=== PATIENT | male | born 1955 | race Caucasian/White ===

== ENCOUNTER → 2017-07-13 | Day surgery (SDC) | payer OTHER ==
[2017-07-11 11:40] LABS: ANION GAP 13.2 mmol/L (8-16); BLOOD UREA NITROGEN 8 mg/dL (7-26); BUN/CREATININE RATIO 8 (6-25); CALCIUM 10.1 mg/dL (8.4-10.2); CARBON DIOXIDE 32 mmol/L (22-29); CHLORIDE 103 mmol/L (98-107); CREATININE, SERUM 1.06 mg/dL (0.72-1.25); EST GLOMERULAR FILTRATION RATE > 60 ML/MIN (60-); GLUCOSE 122 mg/dL (74-118); POTASSIUM 5.2 mmol/L (3.5-5.1); SODIUM 143 mmol/L (136-145)
[~2017-07-13] MED LIST: ASPIRIN81 MG PO; BELLADONNA/OPIUM 60 MG SUPP PR ONE; CALCIUM 500+D1 EACH PO; CEFTRIAXONE SOD 1 GM/NS 50 ML 50 ML IV ONE; EPHEDRINE SULFATE INJ 50 MG/10 ML SYR ONE; FENTANYL CITRATE/PF 100MCG/2 ML INJ ONE; FINASTERIDE5 MG PO; GENTAMICIN SULFATE 160 MG in SODIUM CHLORIDE 0.9% 100 ML IV ONE; IOPAMIDOL 610MG/1ML 300 MG/ML VIAL IV ONE; LIDOCAINE HCL 2% LOCAL INJ 5 ML SDV VIAL INJ ONE; MIDAZOLAM HCL 2 MG/2 ML VIAL ONE; MULTIVITAMINS1 EAC7 PO; ONDANSETRON HCL INJ 2 MG/ML VIAL ONE; PROPOFOL IV EMULSION 10 MG/ML 20 ML VIAL ONE; SEVOFLURANE INHAL SOLN 250 ML PEN BTL ONE; TAMSULOSIN HCL0.4 MG PO
--- NOTE | 2017-08-25 03:30 | Operative Report ---
DATE OF PROCEDURE: July 13, 2017 PREOPERATIVE DIAGNOSES 1. Obstructive BPH. 2. Incomplete bladder emptying. POSTOPERATIVE DIAGNOSES 1. Obstructive BPH. 2. Incomplete bladder emptying. PROCEDURE PERFORMED 1. Cystourethroscopy with bilateral ureteral catheterization and retrograde ureteropyelography (separate procedure performed to evaluate the upper tracts in light of the incomplete bladder emptying). 2. Cystourethroscopy with implantation of 4 UroLift implants (separate procedure performed for the obstructive BPH). 3. Interpretation of retrograde ureteropyelography. 4. Supervision of fluoroscopy. No radiologist present. ANESTHESIA: General. COMPLICATIONS: None. CLINICAL SUMMARY: Baljit Mcadams is a 61-year-old man with obstructive BPH. He is on medications. The patient would like a procedure to improve his urinary stream and allow him to discontinue his medications. The patient understands the risks of bleeding, infection, injury to adjacent structures, need for additional procedures, and elected to proceed. The patient this procedure in order to minimize his dependency on medications as well as avoid medication side effects such as retrograde ejaculation. He also understands he may need additional prostatic procedures in the future. He understood all these risks and elected to proceed. OPERATIVE PROCEDURE IN DETAIL: Informed consent was verified. Baljit Mcadams was properly identified, taken to the operating room, placed on the cystoscopy table in supine position. Anesthesia was uneventfully begun. Patient was then carefully gently re-positioned in the dorsal lithotomy position with all pressure points well padded. His genitalia were prepared and draped in the usual sterile fashion. The 22.5-Honduran cystoscope sheath with a visual obturator in place was atraumatically inserted in the patient's urethra. It was guided down the unremarkable distal urethra past a normal sphincteric region through the prostate bed, which was significant for bilobar prostatic hypertrophy with kissing, visually obstructing lateral lobes. No median lobe was identified. We entered the patient's bladder which exhibited grade 2 trabeculations, but there were no tumors, no stones, and no diverticula. Normally positioned and configured ureteral orifices were identified. An 8-Honduran catheter was utilized to cannulate both ureters and retrograde ureteropyelograms were performed. Interpretation of retrograde ureteropyelography: Contrast was instilled in retrograde fashion bilaterally. There were no tumors, no stones, and no diverticula. Unobstructed drainage was observed bilaterally fluoroscopically. The cystoscope was withdrawn. The 20-Honduran cystoscope was inserted with a visual obturator in place. The bladder was drained. UroLift implants were placed anterolaterally 1.5 cm distal to the bladder neck on either side as well as at the level of verumontanum on either side. Once placement of 4 implants was completed, the patient's bladder was drained. We removed the cystoscope. We then carefully examined the prostatic bed which exhibited a continuous anterior channel. A belladonna and opium suppository was placed revealing a 40-g prostate that was smooth, nonfluctuant without any nodules. The patient was uneventfully reversed from anesthesia and taken to recovery room in stable condition. There were no complications to the procedure. Patient tolerated the procedure well. Explicit postop instructions were given and we will return the patient to the office at which point in time we will perform uroflowmetry and bladder ultrasonography and of course long-term BPH followup. Job#: [id number]
== END | disposition home or self-care (01) ==
LOC: OR 06:58
PROVIDERS: ATTEND Urology
DX: N40.1 Benign prostatic hyperplasia with lower urinary tract symptoms (principal); N13.8 Other obstructive and reflux uropathy; R39.14 Feeling of incomplete bladder emptying; N32.89 Other specified disorders of bladder; G47.33 Obstructive sleep apnea (adult) (pediatric); E11.9 Type 2 diabetes mellitus without complications; K21.9 Gastro-esophageal reflux disease without esophagitis; Z01.810 Encounter for preprocedural cardiovascular examination; Z01.812 Encounter for preprocedural laboratory examination
CPT/HCPCS: 52005; C9740; 36415; 74420; 80048; 93005; J0696; J1580; J2001; J2250; J2405; J7050

== ENCOUNTER 2022-02-17 07:51 | Inpatient (IN) | payer MEDICARE ==
[2022-02-15 09:11] LABS: BASOPHILS # (AUTO) 0.1 (0.0-0.1); BASOPHILS % 0.8 % (0.0-1.0); EOSINOPHILS # (AUTO) 0.5 (0.0-0.4); EOSINOPHILS % 6.8 % (0.0-6.0); HEMOGLOBIN 14.3 g/dL (14.0-18.0); LYMPHOCYTES # (AUTO) 2.9 (1.0-3.2); LYMPHOCYTES % 39.3 % (18.0-39.1); MEAN CORPUSCULAR HGB CONC 32.5 g/dL (31-35); MEAN CORPUSCULAR VOLUME 92.4 fL (81-99); MONOCYTES # (AUTO) 0.6 (0.2-0.8); MONOCYTES % 7.5 % (4.4-11.3); NEUTROPHILS # (AUTO) 3.3 (2.1-6.9); NEUTROPHILS % 45.3 % (38.7-80.0); PLATELET COUNT 272 x10e3/uL (140-360); RED BLOOD COUNT 4.76 x10e6/uL (4.3-5.7)
[2022-02-15 10:15] LABS: ANION GAP 12.3 mmol/L (8-16); BLOOD UREA NITROGEN 11 mg/dL (7-26); BUN/CREATININE RATIO 10 (6-25); CALCIUM 8.8 mg/dL (8.4-10.2); CARBON DIOXIDE 27 mmol/L (22-29); CHLORIDE 106 mmol/L (98-107); CREATININE, SERUM 1.12 mg/dL (0.72-1.25); GLUCOSE 145 mg/dL (74-118); POTASSIUM 4.3 mmol/L (3.5-5.1); SODIUM 141 mmol/L (136-145)
[~2022-02-17] VITALS: Ht 170.2 cm; Wt 86.3 kg
[~2022-02-17 07:51] MED LIST changes: -BELLADONNA/OPIUM 60 MG SUPP PR ONE; -CEFTRIAXONE SOD 1 GM/NS 50 ML 50 ML IV ONE; +CLARITIN10 MG PO; +CRESTOR10 MG PO; -EPHEDRINE SULFATE INJ 50 MG/10 ML SYR ONE; -FENTANYL CITRATE/PF 100MCG/2 ML INJ ONE; -GENTAMICIN SULFATE 160 MG in SODIUM CHLORIDE 0.9% 100 ML IV ONE; -IOPAMIDOL 610MG/1ML 300 MG/ML VIAL IV ONE; -LIDOCAINE HCL 2% LOCAL INJ 5 ML SDV VIAL INJ ONE; +LISINOPRIL10 MG PO; +METFORMIN HCL500 MG PO; -MIDAZOLAM HCL 2 MG/2 ML VIAL ONE; -ONDANSETRON HCL INJ 2 MG/ML VIAL ONE; -PROPOFOL IV EMULSION 10 MG/ML 20 ML VIAL ONE; -SEVOFLURANE INHAL SOLN 250 ML PEN BTL ONE
[2022-02-17] MEDS ORDERED: CEFTRIAXONE 1 GM VIAL ONE (08:16)
[2022-02-17] MEDS ORDERED: GENTAMICIN 80MG/NS 100 ML 200 ML IV ONE (08:16)
[2022-02-17] MEDS ORDERED: SODIUM CHLORIDE 0.9% 1000ML 1,000 ML ONE (08:17)
[2022-02-17] MEDS ORDERED: IOPAMIDOL 610MG/1ML 300 MG/ML VIAL IV ONE (10:10)
[2022-02-17] MEDS ORDERED: B&O 60MG R/S 60 MG SUPP PR ONE (10:10)
[2022-02-17] MEDS ORDERED: DIPHENHYDRAMINE HCL 25 MG CAP PO PRN (12:15)
[2022-02-17] MEDS ORDERED: PHENAZOPYRIDINE HCL 100 MG TAB PO PRN (12:15)
[2022-02-17] MEDS ORDERED: ONDANSETRON HCL INJ 2MG/ML 2ML 2 MG/ML VIAL IV PRN (12:15)
[2022-02-17] MEDS ORDERED: D5.45%NS/KCL 20MEQ 1,000 ML IV SCH (12:15)
[2022-02-17] MEDS ORDERED: FENTANYL CITRATE/PF 100MCG/2 ML INJ ONE ×2 (12:28→13:34)
[2022-02-17] MEDS ORDERED: B&O 60MG R/S 60 MG SUPP PR PRN (12:30)
[2022-02-17 12:46] LABS: BASOPHILS # (AUTO) 0.1 (0.0-0.1); BASOPHILS % 0.6 % (0.0-1.0); EOSINOPHILS # (AUTO) 0.2 (0.0-0.4); EOSINOPHILS % 1.9 % (0.0-6.0); HEMATOCRIT 45.5 % (38.2-49.6); HEMOGLOBIN 15.3 g/dL (14.0-18.0); MEAN CORPUSCULAR HEMOGLOBIN 30.2 pg (28-32); MEAN CORPUSCULAR HGB CONC 33.6 g/dL (31-35); MEAN CORPUSCULAR VOLUME 89.7 fL (81-99); MONOCYTES # (AUTO) 0.3 (0.2-0.8); MONOCYTES % 2.3 % (4.4-11.3); NEUTROPHILS # (AUTO) 9.2 (2.1-6.9); NEUTROPHILS % 77.5 % (38.7-80.0); PLATELET COUNT 256 x10e3/uL (140-360); RED BLOOD COUNT 5.07 x10e6/uL (4.3-5.7); RED CELL DISTRIBUTION WIDTH 13.1 % (11.7-14.4)
[2022-02-17 12:54] LABS: ANION GAP 17.5 mmol/L (8-16); CALCIUM 8.4 mg/dL (8.4-10.2); CREATININE, SERUM 1.15 mg/dL (0.72-1.25); POTASSIUM 4.5 mmol/L (3.5-5.1)
[2022-02-17 13:11] VITALS: BP 137/81
[2022-02-17] MEDS ORDERED: MIDAZOLAM HCL 2 MG/2 ML VIAL ONE (13:34)
[2022-02-17 15:12] VITALS: BP 136/75
[2022-02-17] MEDS ORDERED: POVIDONE IODINE 0.05% 0.05 % ML PO ONE (15:12)
[2022-02-17] MEDS ORDERED: SEVOFLURANE INHAL SOLN 250 ML PEN BTL ONE (15:12)
[2022-02-17] MEDS ORDERED: PROPOFOL IV EMULSION 10 MG/ML 20 ML VIAL ONE (15:12)
[2022-02-17] MEDS ORDERED: DEXAMETHASONE SOD PHOS INJ 4 MG/ML SDV ONE (15:12)
[2022-02-17] MEDS ORDERED: EPHEDRINE SULFATE INJ 50 MG/ML VIAL ONE (15:12)
[2022-02-17] MEDS ORDERED: ONDANSETRON HCL INJ 2MG/ML 2ML 2 MG/ML VIAL ONE (15:12)
[2022-02-17] MEDS ORDERED: LIDOCAINE HCL 2% LOCAL INJ 5 ML SDV VIAL INJ ONE (15:12)
[2022-02-17] MEDS ORDERED: FUROSEMIDE INJ 10 MG/ML 4 ML VIAL ONE (15:12)
[2022-02-17] MEDS: DOCUSATE SODIUM 100 MG CAP PO SCH (16:46)
[2022-02-17 20:00] VITALS: BP 125/75
[2022-02-17 20:30] VITALS: BP 125/75
[2022-02-17] MEDS: ACETAMINOPHEN/CODEINE 300MG - 30MG TAB PO PRN (22:27)
[2022-02-17] MEDS ORDERED: DEXTROSE 50% SYRINGE 50 ML IV PRN (22:45)
[2022-02-17] MEDS: INSULIN LISPRO 100 UNIT/1 ML 3ML VIAL SQ SCH (22:45)
[2022-02-18] VITALS (8 sets, daily range): BP systolic 97–128; BP diastolic 63–82
[2022-02-18] MEDS: SODIUM CHLORIDE 0.45% 1,000 ML IV SCH ×3 (00:15→20:23)
[2022-02-18 06:16] LABS: BASOPHILS % 0.1 % (0.0-1.0); EOSINOPHILS % 0.2 % (0.0-6.0); HEMOGLOBIN 15.7 g/dL (14.0-18.0); LYMPHOCYTES % 21.4 % (18.0-39.1); MEAN CORPUSCULAR HEMOGLOBIN 29.7 pg (28-32); MEAN CORPUSCULAR HGB CONC 33.4 g/dL (31-35); MONOCYTES # (AUTO) 1.1 (0.2-0.8); MONOCYTES % 7.7 % (4.4-11.3); NEUTROPHILS # (AUTO) 9.7 (2.1-6.9); NEUTROPHILS % 70.2 % (38.7-80.0); PLATELET COUNT 300 x10e3/uL (140-360); RED BLOOD COUNT 5.28 x10e6/uL (4.3-5.7); RED CELL DISTRIBUTION WIDTH 13.2 % (11.7-14.4)
[2022-02-18 07:06] LABS: ANION GAP 15.6 mmol/L (8-16); CALCIUM 8.4 mg/dL (8.4-10.2); CREATININE, SERUM 1.07 mg/dL (0.72-1.25); POTASSIUM 4.6 mmol/L (3.5-5.1)
[2022-02-18] MEDS: INSULIN LISPRO 100 UNIT/1 ML 3ML VIAL SQ SCH ×4 (07:30→20:30)
[2022-02-18] MEDS: LORATADINE 10 MG TAB PO SCH (08:27)
[2022-02-18] MEDS: MULTIVITAMINS/MINERALS TAB PO SCH (08:28)
[2022-02-18] MEDS: LISINOPRIL 10 MG TAB PO SCH (08:28)
[2022-02-18] MEDS: DOCUSATE SODIUM 100 MG CAP PO SCH ×2 (08:28→15:45)
[2022-02-18] MEDS: TAMSULOSIN HCL 0.4 MG CAP PO SCH (08:28)
[2022-02-18] MEDS: FINASTERIDE 5 MG TAB PO SCH (08:29)
[2022-02-18] MEDS: SIMVASTATIN 40 MG TAB PO SCH (08:29)
[2022-02-18] MEDS ORDERED: MAGNESIUM SULFATE 2GM/50ML 50 ML IV ONE (09:45)
[2022-02-18] MEDS: ACETAMINOPHEN/CODEINE 300MG - 30MG TAB PO PRN (11:31)
[2022-02-19 00:24] VITALS: BP 110/75
[2022-02-19 04:00] VITALS: BP 99/63
[2022-02-19] MEDS ORDERED: SODIUM CHLORIDE 0.45% 1,000 ML IV SCH (04:00)
[2022-02-19 05:21] LABS: BASOPHILS % 0.2 % (0.0-1.0); EOSINOPHILS # (AUTO) 0.3 (0.0-0.4); EOSINOPHILS % 1.9 % (0.0-6.0); HEMATOCRIT 44.8 % (38.2-49.6); HEMOGLOBIN 15.1 g/dL (14.0-18.0); LYMPHOCYTES # (AUTO) 3.8 (1.0-3.2); LYMPHOCYTES % 26.3 % (18.0-39.1); MEAN CORPUSCULAR HEMOGLOBIN 29.8 pg (28-32); MEAN CORPUSCULAR HGB CONC 33.7 g/dL (31-35); MEAN CORPUSCULAR VOLUME 88.5 fL (81-99); MONOCYTES # (AUTO) 1.5 (0.2-0.8); MONOCYTES % 10.3 % (4.4-11.3); NEUTROPHILS # (AUTO) 8.7 (2.1-6.9); NEUTROPHILS % 60.8 % (38.7-80.0); PLATELET COUNT 253 x10e3/uL (140-360); RED BLOOD COUNT 5.06 x10e6/uL (4.3-5.7); RED CELL DISTRIBUTION WIDTH 13.2 % (11.7-14.4)
[2022-02-19 05:43] LABS: ANION GAP 11.7 mmol/L (8-16); CALCIUM 7.9 mg/dL (8.4-10.2); CREATININE, SERUM 1.2 mg/dL (0.72-1.25); POTASSIUM 4.7 mmol/L (3.5-5.1)
[2022-02-19] MEDS: INSULIN LISPRO 100 UNIT/1 ML 3ML VIAL SQ SCH ×3 (07:30→16:07)
[2022-02-19 08:43] VITALS: BP 102/72
[2022-02-19] MEDS: TAMSULOSIN HCL 0.4 MG CAP PO SCH (08:50)
[2022-02-19] MEDS: MULTIVITAMINS/MINERALS TAB PO SCH (08:50)
[2022-02-19] MEDS: DOCUSATE SODIUM 100 MG CAP PO SCH (08:50)
[2022-02-19] MEDS: LORATADINE 10 MG TAB PO SCH (08:50)
[2022-02-19] MEDS: LISINOPRIL 10 MG TAB PO SCH (08:51)
[2022-02-19] MEDS: SIMVASTATIN 40 MG TAB PO SCH (08:51)
[2022-02-19] MEDS: FINASTERIDE 5 MG TAB PO SCH (08:51)
[2022-02-19] MEDS ORDERED: LORATADINE 10 MG TAB PO SCH (09:00)
[2022-02-19] MEDS ORDERED: SODIUM CHLORIDE 0.9% 1000ML 1,000 ML IV SCH (10:30)
[2022-02-19] MEDS ORDERED: ONDANSETRON HCL 4 MG ORAL DISINTEGRATING TAB PO PRN ×2 (11:00)
[2022-02-19 12:33] VITALS: BP 106/64
[2022-02-19 16:04] VITALS: BP 106/64
[2022-02-19 16:13] VITALS: BP 116/83
== END 2022-02-19 18:15 | disposition home or self-care (01) | DRG 713 ==
LOC: OR 07:51 → PACU V 12:11 → MED/SURG 13:11
PROVIDERS: ADMIT Internal Medicine; ATTEND Internal Medicine
PROC: BT141ZZ Fluoroscopy of Kidneys, Ureters and Bladder using Low Osmolar Contrast (ICD-10-PCS; 2022-02-17)
PROC: 0T7D8ZZ Dilation of Urethra, Via Natural or Artificial Opening Endoscopic (ICD-10-PCS; 2022-02-17)
PROC: 0T788ZZ Dilation of Bilateral Ureters, Via Natural or Artificial Opening Endoscopic (ICD-10-PCS; principal; 2022-02-17 10:16)
PROC: 0V508ZZ Destruction of Prostate, Via Natural or Artificial Opening Endoscopic (ICD-10-PCS; 2022-02-17 10:16)
DX: N40.1 Benign prostatic hyperplasia with lower urinary tract symptoms (principal); N13.8 Other obstructive and reflux uropathy; R33.8 Other retention of urine; R31.0 Gross hematuria; E11.9 Type 2 diabetes mellitus without complications; Z20.822 Contact with and (suspected) exposure to COVID-19; Z86.16 Personal history of COVID-19; K46.9 Unspecified abdominal hernia without obstruction or gangrene; I12.9 Hypertensive chronic kidney disease with stage 1 through stage 4 chronic kidney disease, or unspecified chronic kidney disease; E11.22 Type 2 diabetes mellitus with diabetic chronic kidney disease; N18.9 Chronic kidney disease, unspecified; Z79.899 Other long term (current) drug therapy; N35.912 Unspecified bulbous urethral stricture, male
CPT/HCPCS: 0223U; 36415; 71046; 74420; 80048; 82948; 83735; 85025; 93005; 94799; C1758; J0696; J1100; J1580; J1940; J2001; J2250; J2405; J3010; J3475; J7030